=== PATIENT | female | born 1940 | race Caucasian/White ===

== ENCOUNTER 2019-09-16 14:35 | Emergency (ER) | payer MEDICARE, OTHER ==
[~2019-09-16] VITALS: Ht 162.6 cm; Wt 112.5 kg
[~2019-09-16 14:35] MED LIST: ASPIR 8181 M1 PO; B12INJ IM; GARLIC OIL1000 MG PO; IMDUR 60 MG TAB60 M1 PO; LEVOTHYROXIN0.075 MG PO; METFORMIN HCL500 MG PO; NITROGLYCERIN0.4 MG SUBLING; NORCO 10-325 T1 EACH PO; NORVASC2.5 MG PO; VITAMIN D1000 UNI1 PO
[2019-09-16] MEDS ORDERED: PROTONIX40 M2 PO (14:46)
[2019-09-16] MEDS ORDERED: FAMOTIDINE 20 M20 MG PO (14:46)
[2019-09-16] MEDS ORDERED: LASIX 40 MG TAB40 MG PO (14:47)
[2019-09-16] MEDS ORDERED: ALLOPURINOL 10100 M1 PO (14:47)
[2019-09-16 15:20] LABS: ABSOLUTE BASOPHILS 0.1 thou/uL (0.0-0.2); ABSOLUTE EOSINOPHILS 0.2 thou/uL (0.0-0.7); ABSOLUTE LYMPHOCYTES 3.3 thou/uL (0.8-5.3); ABSOLUTE MONOCYTES 0.6 thou/uL (0.0-1.2); BASOPHILS 0.6 %; EOSINOPHILS 1.6 %; HEMATOCRIT 38.9 % (37.0-47.0); HEMOGLOBIN 12.8 gm/dL (12.0-15.0); LYMPHOCYTES 32.7 %; MCH 29.8 pg (26.0-34.0); MCHC 32.9 g/dL (28.0-37.0); MCV 90.4 fL (80.0-100.0); MONOCYTES 6.3 %; MPV 8.6 fl. (7.2-11.1); NUCLEATED RBCS 0 /100WBC; PLATELET COUNT* 239 thou/uL (150-400); POLYS 58.8 %; RDW-CV 15.7 % (10.5-14.5); WBC 10.2 thou/uL (4.0-11.0)
[2019-09-16 15:26] LABS: CALCIUM 8.9 mg/dL (8.5-10.1); CREATININE 1.7 mg/dL (0.6-1.3); POTASSIUM 4.5 mmol/L (3.5-5.1)
[2019-09-16 15:30] LABS: TOTAL BILIRUBIN 0.3 mg/dL (<0.1-1.0); TOTAL PROTEIN 7.5 g/dL (6.4-8.2)
--- NOTE | 2019-09-16 16:21 | EKG ---
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
[2019-09-16 16:27] VITALS: BP 158/87
== END 2019-09-16 16:29 | disposition home or self-care (01) ==
LOC: M.ERS 14:35
PROVIDERS: Emergency Medicine Emergency Medical Services
DX: I10 Essential (primary) hypertension (principal); E03.9 Hypothyroidism, unspecified; E11.9 Type 2 diabetes mellitus without complications; Z88.5 Allergy status to narcotic agent; Z88.8 Allergy status to other drugs, medicaments and biological substances; Z95.5 Presence of coronary angioplasty implant and graft; Z86.73 Personal history of transient ischemic attack (TIA), and cerebral infarction without residual deficits; Z90.89 Acquired absence of other organs; Z87.442 Personal history of urinary calculi; Z90.710 Acquired absence of both cervix and uterus; Z87.01 Personal history of pneumonia (recurrent)

== ENCOUNTER 2020-05-06 08:29 | Emergency (ER) | payer MEDICARE, OTHER ==
[~2020-05-06] VITALS: Ht 162.6 cm; Wt 107.5 kg
[~2020-05-06 08:29] MED LIST changes: +ALLOPURINOL 10100 M1 PO; +FAMOTIDINE 20 M20 MG PO; +LASIX 40 MG TAB40 MG PO; +PROTONIX40 M2 PO
[2020-05-06] MEDS ORDERED: SPIRONOLACTONE25 MG PO (08:38)
[2020-05-06] MEDS ORDERED: CARVEDILOL3.125 MG PO (08:38)
[2020-05-06 09:04] LABS: ABSOLUTE BASOPHILS 0.1 thou/uL (0.0-0.2); ABSOLUTE EOSINOPHILS 0.1 thou/uL (0.0-0.7); ABSOLUTE LYMPHOCYTES 2.1 thou/uL (0.8-5.3); ABSOLUTE MONOCYTES 0.7 thou/uL (0.0-1.2); ABSOLUTE NEUTROPHILS 4.1 thou/uL (1.6-8.1); BASOPHILS 0.9 %; EOSINOPHILS 1.5 %; HEMATOCRIT 37.4 % (37.0-47.0); HEMOGLOBIN 12.4 gm/dL (12.0-15.0); LYMPHOCYTES 29.7 %; MCH 30.6 pg (26.0-34.0); MCHC 33.2 g/dL (28.0-37.0); MCV 92.1 fL (80.0-100.0); MONOCYTES 9.4 %; MPV 8.2 fl. (7.2-11.1); NUCLEATED RBCS 0 /100WBC; PLATELET COUNT* 211 thou/uL (150-400); POLYS 58.5 %; RBC 4.06 mil/uL (4.20-5.00); RDW-CV 15.6 % (10.5-14.5)
[2020-05-06 09:13] LABS: CALCIUM 8.5 mg/dL (8.5-10.1); CREATININE 1.7 mg/dL (0.6-1.3); POTASSIUM 4.2 mmol/L (3.5-5.1)
[2020-05-06 09:14] LABS: PROTIME 10.7 Seconds (9.20-11.50)
[2020-05-06 09:26] LABS: ALBUMIN 3.9 g/dL (3.4-5.0); CK-MB MASS 0.6 ng/mL (<0.5-3.6); MAGNESIUM 1.6 mg/dL (1.8-2.4); TOTAL BILIRUBIN 0.4 mg/dL (<0.1-1.0); TOTAL PROTEIN 7.4 g/dL (6.4-8.2)
[2020-05-06 10:15] VITALS: BP 174/75
--- NOTE | 2020-05-06 14:01 | EKG ---
[place] [address] ELECTROCARDIOGRAM REPORT Name: ALBERTO TODD Room: [facility]#: [id number] Admission: 05/06/20 Attend Phys: Discharge: 05/06/20 Date of : 36 Date of Service: 05/06/20 0837 Report #: [id number] THIS REPORT FOR: //name// [facility] ED Test Date: 2020-05-06 Test Time: 08:37:28 Pat Name: ALBERTO TODD Department: Room: Gender: F Pool Attendant: [facility] : 1940 Requested By: Doc Keen Order Number: [id number] MD: Yobani Subramanian Measurements Intervals [place] Rate: 66 P: -43 NV: 206 QRS: 12 QRSD: 88 T: 59 QT: 375 QTc: 393 Interpretive Statements Sinus rhythm Atrial premature complex Compared to ECG 09/16/2019 14:42:18 Atrial premature complex(es) now present Electronically Signed On 05-06-2020 14:01:45 CDT by Yobani Subramanian [email or web address] <ELECTRONICALLY SIGNED> By: Yobani Subramanian MD, [facility] 05/06/20 1401 0837 0837 Yobani Subramanian MD, [facility] /EPI
== END 2020-05-06 10:16 | disposition home or self-care (01) ==
LOC: M.ERS 08:29
PROVIDERS: Family Medicine
DX: I10 Essential (primary) hypertension (principal); E03.9 Hypothyroidism, unspecified; E11.9 Type 2 diabetes mellitus without complications; Z88.5 Allergy status to narcotic agent; Z88.7 Allergy status to serum and vaccine; Z88.8 Allergy status to other drugs, medicaments and biological substances; Z86.73 Personal history of transient ischemic attack (TIA), and cerebral infarction without residual deficits; Z87.442 Personal history of urinary calculi; Z90.710 Acquired absence of both cervix and uterus; Z90.89 Acquired absence of other organs